=== PATIENT | female | born 1990 | race Caucasian/White ===

== ENCOUNTER 2017-02-13 17:48 | Emergency (ER) | payer OTHER, SELFPAY ==
[2017-02-13] MEDS ORDERED: PROCHLORPERAZINE 5 MG TAB PO STA (18:08)
[2017-02-13] MEDS ORDERED: IBUPROFEN 600 MG TAB PO STA (18:08)
--- NOTE | 2017-02-13 18:13 | ED ---
General Adult HPI - General Chief complaint: Head Injury Stated complaint: Head pain/injury Time Seen by Provider: 02/13/17 17:59 Source: patient, RN notes reviewed, old records reviewed Mode of arrival: ambulatory Limitations: no limitations - History of Present Illness Initial comments: This is a 26-year-old female here for evaluation of headache. Patient has worsening injury that she had and will getting into her car and dizzy nauseous at the time of breath and has since felt worse under stress and activity. Patient denies nausea or vomiting, denies neurological deficit. Has not taken any medications for pain. Patient was originally seen on an outpatient basis and told to come the ER if headache does not resolve or gets worse in the next week. Patient denies a getting worse and states that she still has persistent headache which is occasional. Patient is currently without headache - Related Data Home Medications Medication Instructions Recorded Confirmed Calcium Carbonate [Tums] 1,500 mg PO DAILY PRN 02/13/17 02/13/17 Allergies Allergy/AdvReac Type Severity Reaction Status Date / Time red dye Allergy Rash/Hives Verified 02/13/17 18:00 codeine AdvReac Hallucinati Verified 02/13/17 17:57 ons guaifenesin AdvReac Hallucinati Verified 02/13/17 17:57 ons Review of Systems ROS Statement: Those systems with pertinent positive or pertinent negative responses have been documented in the HPI. ROS Other: All systems not noted in ROS Statement are negative. Past Medical History Past Medical History: GERD/Reflux Additional Past Medical History / Comment(s): FEELS LIKE FOOD IS STUCK IN THROAT AT TIMES. REACTIVE HYPOGLYCEMIA History of Any Multi-Drug Resistant Organisms: None Reported Past Surgical History: No Surgical Hx Reported Past Anesthesia/Blood Transfusion Reactions: Motion Sickness Past Psychological History: No Psychological Hx Reported Smoking Status: Never smoker Past Alcohol Use History: None Reported Past Drug Use History: None Reported - Past Family History Mother Family Medical History: No Reported History General Exam Limitations: no limitations General appearance: alert, in no apparent distress Head exam: Present: atraumatic, normocephalic, normal inspection Eye exam: Present: normal appearance, PERRL, EOMI. Absent: scleral icterus, conjunctival injection, periorbital swelling ENT exam: Present: normal exam, mucous membranes moist Neck exam: Present: normal inspection. Absent: tenderness, meningismus, lymphadenopathy Respiratory exam: Present: normal lung sounds bilaterally. Absent: respiratory distress, wheezes, rales, rhonchi, stridor Cardiovascular Exam: Present: regular rate, normal rhythm, normal heart sounds. Absent: systolic murmur, diastolic murmur, rubs, gallop, clicks GI/Abdominal exam: Present: soft, normal bowel sounds. Absent: distended, tenderness, guarding, rebound, rigid Extremities exam: Present: normal inspection, full ROM, normal capillary refill. Absent: tenderness, pedal edema, joint swelling, calf tenderness Back exam: Present: normal inspection Neurological exam: Present: alert, oriented X3, CN II-XII intact Psychiatric exam: Present: normal affect, normal mood Skin exam: Present: warm, dry, intact, normal color. Absent: rash Course Vital Signs 02/13/17 17:55 Temperature 98.5 F Pulse Rate 70 Respiratory 20 Rate Blood Pressure 139/88 O2 Sat by Pulse 98 Oximetry - Reevaluation(s) Reevaluation #1: 02/13/17 18:12 Patient's headache at this point is resolved Medical Decision Making - Medical Decision Making 20 [facility] ER for evaluation of headache. Patient has had resolved CT negative will follow-up as again on outpatient for further evaluation of concussion - Radiology Data Radiology results: report reviewed (CT brain is negative for acute disease she says again denies ago), image reviewed Disposition Clinical Impression: Closed head injury, Concussion without loss of consciousness Disposition: HOME SELF-CARE Condition: Good Instructions: Concussion (ED) Referrals: Anoop Andrews MD [Primary Care Provider] - 1-2 days
[2017-02-13] MEDS: diphenhydrAMINE 25 MG CAP PO STA ×2 (18:31→18:32)
--- NOTE | 2017-02-13 18:46 | CT ---
EXAMINATION TYPE: CT brain wo con DATE OF EXAM: 02/13/2017 COMPARISON: 02/21/2010 HISTORY: Posterior head injury 1 week ago. Pressure to head and behind eyes. CT DLP: 1028.60 mGycm. Automated Exposure Control for Dose Reduction was Utilized. TECHNIQUE: CT scan of the head is performed without contrast. FINDINGS: The ventricles and sulci appear normal. There is no mass effect nor midline shift. There is no sign of intracranial hemorrhage. The calvarium is intact. IMPRESSION: Negative CT scan of the brain. No change..
[2017-02-13 19:32] VITALS: BP 120/72; PULSE 92; RESP 16; TEMP 97.9
== END 2017-02-13 19:30 | disposition home or self-care (01) ==
LOC: EC 17:48
DX: S06.0X0D Concussion without loss of consciousness, subsequent encounter (principal); Z88.5 Allergy status to narcotic agent; Z88.8 Allergy status to other drugs, medicaments and biological substances; Z91.048 Other nonmedicinal substance allergy status; W01.10XD Fall on same level from slipping, tripping and stumbling with subsequent striking against unspecified object, subsequent encounter
CPT/HCPCS: 70450; 99284

== ENCOUNTER 2017-02-14 17:18 | Emergency (ER) | payer OTHER ==
[2017-02-14 17:59] VITALS: RESP 18
[2017-02-14] MEDS ORDERED: KETOROLAC 30 MG/ML 1 ML VIAL IM STA (18:47)
[2017-02-14] MEDS ORDERED: ACETAMINOPHEN TAB 500 MG TAB PO STA (18:47)
[2017-02-14] MEDS ORDERED: ONDANSETRON 4 MG ODT STARTER PACK 2 TAB BTL PO STA (18:47)
[2017-02-14] MEDS ORDERED: RX INFO: IV CONTRAST WAS GIVEN 1 EACH MISC MISCELLANE PRN (19:10)
--- NOTE | 2017-02-14 19:15 | ED ---
Head Injury HPI - General Chief complaint: Head Injury Stated complaint: Hx CONCUSSION, PAIN GETTING WORSE Time Seen by Provider: 02/14/17 18:12 Source: patient, RN notes reviewed, old records reviewed Mode of arrival: ambulatory Limitations: no limitations - History of Present Illness Initial comments: This is a 26-year-old female presenting to the emergency department 1 week post head injury. Patient was in the emergency department yesterday she was having continuing headache. Patient reports that she hit her head while going into the car. She was evaluated by her primary care physician and was told that she has a concussion. Patient states that she was concerned yesterday because the pain was continuing. She received a CT without contrast of the brain was negative for any acute process. Patient reports that today her headache was continue to persist and she felt like things were slow to react. Patient denies any specific focal deficits. - Related Data Home Medications Medication Instructions Recorded Confirmed Calcium Carbonate [Tums] 1,500 mg PO DAILY PRN 02/13/17 02/13/17 Previous Rx's Medication Instructions Recorded Butalb/APAP/Caff 50-325-40Mg 1 tab PO Q4H PRN #20 tablet 02/14/17 [Fioricet 50-325-40] Ibuprofen [Motrin] 600 mg PO Q8HR PRN #20 tab 02/14/17 Ondansetron Odt [Zofran Odt] 4 mg PO Q8HR PRN #12 tab 02/14/17 Allergies/Adverse reactions: Allergies Allergy/AdvReac Type Severity Reaction Status Date / Time red dye Allergy Rash/Hives Verified 02/14/17 17:59 codeine AdvReac Hallucinati Verified 02/14/17 17:59 ons guaifenesin AdvReac Hallucinati Verified 02/14/17 17:59 ons Review of Systems ROS Statement: Those systems with pertinent positive or pertinent negative responses have been documented in the HPI. ROS Other: All systems not noted in ROS Statement are negative. Past Medical History Past Medical History: GERD/Reflux Additional Past Medical History / Comment(s): REACTIVE HYPOGLYCEMIA History of Any Multi-Drug Resistant Organisms: None Reported Past Surgical History: No Surgical Hx Reported Past Anesthesia/Blood Transfusion Reactions: Motion Sickness Past Psychological History: No Psychological Hx Reported Smoking Status: Never smoker Past Alcohol Use History: None Reported Past Drug Use History: None Reported - Past Family History Mother Family Medical History: No Reported History General Exam - General Exam Comments Initial Comments: 26-year-old female. No acute distress. Limitations: no limitations General appearance: alert, in no apparent distress Head exam: Present: atraumatic Eye exam: Present: normal appearance, PERRL, EOMI. Absent: scleral icterus, conjunctival injection, periorbital swelling ENT exam: Present: normal exam, mucous membranes moist Neck exam: Present: normal inspection. Absent: tenderness, meningismus, lymphadenopathy Respiratory exam: Present: normal lung sounds bilaterally. Absent: respiratory distress, wheezes, rales, rhonchi, stridor Cardiovascular Exam: Present: regular rate, normal rhythm, normal heart sounds. Absent: systolic murmur, diastolic murmur, rubs, gallop, clicks GI/Abdominal exam: Present: soft, normal bowel sounds. Absent: distended, tenderness, guarding, rebound, rigid Extremities exam: Present: normal inspection, full ROM, normal capillary refill. Absent: tenderness, pedal edema, joint swelling, calf tenderness Back exam: Present: normal inspection Neurological exam: Present: alert, oriented X3, CN II-XII intact Expanded Patient oriented to: Present: person, place, time Speech: Present: fluid speech Cranial nerves: EOM's Intact: Normal, Gag Reflex: Normal, Tongue Deviation: Normal, Facial Sensation: Normal Cerebellar function: Finger to Nose: Normal Upper motor neuron: Pronator Drift: Normal Sensory exam: Upper Extremity Light Touch: Normal, Lower Extremity Light Touch: Normal Motor strength exam: RUE: 5, LUE: 5, RLE: 5, LLE: 5 Eye Response: (4) open spontaneously Motor Response: (6) obeys commands Verbal Response: (5) oriented Tran Total: 15 Psychiatric exam: Present: normal affect, normal mood Course Vital Signs 02/14/17 02/14/17 17:55 20:07 Temperature 98.3 F 98.2 F Pulse Rate 77 85 Respiratory 18 18 Rate Blood Pressure 129/82 124/71 O2 Sat by Pulse 100 100 Oximetry Medical Decision Making - Medical Decision Making 26-year-old female 3 feet visit for headache. She has not taken anything for the headache today. Patient received a CT without contrast yesterday with same if any acute process. Patient has no focal deficits and neurologically intact. Discussed with Dr. Mar. Given the fact the patient's intermittent emergency department and she is here twice for headache within 24 hours patient is felt to have a CT with contrast. CT CRUZ and CBC and CMP obtained. Patient given Zofran, Toradol. CT angiogram of head is negative for any acute process. Patient was reevaluated and is feeling better after medication. Patient again is neurologically intact. No deficits. Discussed postconcussive syndrome and aortic less for a long time. Discussed that she needs to take Motrin Tylenol and I'll write the patient for nausea medication for her headaches. Patient agrees to treatment plan will comply. She also relates that she has an MRI scheduled in Friday. Return parameters were discussed. CBC and CMP are negative for any acute process. - Lab Data Result diagrams: 02/14/17 19:28 02/14/17 19:28 Lab Results 02/14/17 02/14/17 Range/Units 19:28 19:28 WBC 8.4 (3.8-10.6) k/uL RBC 4.99 (3.80-5.40) m/uL Hgb 14.1 (11.4-16.0) gm/dL Hct 41.5 (34.0-46.0) % MCV 83.2 (80.0-100.0) fL MCH 28.3 (25.0-35.0) pg MCHC 34.0 (31.0-37.0) g/dL RDW 14.5 (11.5-15.5) % Plt Count 212 (150-450) k/uL Neutrophils % 63 % Lymphocytes % 27 % Monocytes % 5 % Eosinophils % 3 % Basophils % 1 % Neutrophils # 5.3 (1.3-7.7) k/uL Lymphocytes # 2.2 (1.0-4.8) k/uL Monocytes # 0.4 (0-1.0) k/uL Eosinophils # 0.2 (0-0.7) k/uL Basophils # 0.1 (0-0.2) k/uL Sodium 139 (137-145) mmol/L Potassium 4.1 (3.5-5.1) mmol/L Chloride 103 (98-107) mmol/L Carbon Dioxide 24 (22-30) mmol/L Anion Gap 12 mmol/L BUN 18 H (7-17) mg/dL Creatinine 0.56 (0.52-1.04) mg/dL Est GFR (MDRD) Af Amer >60 (>60 ml/min/1.73 sqM) Est GFR (MDRD) Non-Af >60 (>60 ml/min/1.73 sqM) Glucose 77 (74-99) mg/dL Calcium 9.4 (8.4-10.2) mg/dL - Radiology Data Radiology results: report reviewed CT CRUZ head is negative for any acute process. Disposition Clinical Impression: Postconcussive syndrome Disposition: HOME SELF-CARE Condition: Good Instructions: Concussion (ED) Additional Instructions: Patient is to rest, increase her fluid intake. Take Motrin, and the nausea medication as prescribed. Follow-up with her primary care provider. Return to the emergency department if any alarming signs or symptoms occur. Prescriptions: Butalb/APAP/Caff 50-325-40Mg [Fioricet 50-325-40] 1 tab PO Q4H PRN #20 tablet PRN Reason: Pain Ibuprofen [Motrin] 600 mg PO Q8HR PRN #20 tab PRN Reason: Pain Ondansetron Odt [Zofran Odt] 4 mg PO Q8HR PRN #12 tab PRN Reason: Nausea Referrals: Anoop Andrews MD [Primary Care Provider] - 1-2 days Time of Disposition: 20:44
[2017-02-14] MEDS ORDERED: SODIUM CHLORIDE 0.9% 1,000 ML IV ONE (19:30)
[2017-02-14 19:40] LABS: HCT 41.5 % (34.0-46.0); HGB 14.1 gm/dL (11.4-16.0); MCV 83.2 fL (80.0-100.0); RBC 4.99 m/uL (3.80-5.40); WBC 8.4 k/uL (3.8-10.6); WBC (Perox) 8.12
[2017-02-14 19:41] LABS: Basophils # (A) 0.1 k/uL (0-0.2); Basophils % (A) 1 %; CH 28.9; CHCM 34.9; Eosinophils # (A) 0.2 k/uL (0-0.7); Eosinophils % (A) 3 %; HDW 2.63; Luc # (Auto) 0.16; Luc % (Auto) 2; Lymphocytes # (A) 2.2 k/uL (1.0-4.8); Lymphocytes % (A) 27 %; MCH 28.3 pg (25.0-35.0); Mean Platelet Volume 8.1; Monocytes # (A) 0.4 k/uL (0-1.0); Monocytes % (A) 5 %; Neutrophils # (A) 5.3 k/uL (1.3-7.7); Neutrophils % (A) 63 %; RDW 14.5 % (11.5-15.5)
[2017-02-14 19:51] LABS: Anion Gap 12 mmol/L; Blood Urea Nitrogen 18 mg/dL (7-17); Calcium 9.4 mg/dL (8.4-10.2); Carbon Dioxide 24 mmol/L (22-30); Chloride 103 mmol/L (98-107); Glucose 77 mg/dL (74-99); Non-African American GFR(MDRD) >60 (>60 ml/min/1.73 sqM); Potassium 4.1 mmol/L (3.5-5.1); Sodium 139 mmol/L (137-145)
[2017-02-14 20:08] VITALS: PULSE 85
--- NOTE | 2017-02-14 20:21 | CT ---
EXAMINATION TYPE: CT angio head DATE OF EXAM: 02/14/2017 8:10 PM COMPARISON: NONE HISTORY: Posterior head injury 8 days ago. Pressure to head and behind eyes. CT DLP: 1212.30 mGycm Automated exposure control for dose reduction was used. TECHNIQUE: Performed with IV Contrast, patient injected with 100 mL of Omnipaque 350. There are 3-D post processed images.. FINDINGS: There is arterial flow in the anterior middle and posterior cerebral arteries. There is arterial flow in the vertebrobasilar artery system. There is normal contrast opacification of the venous sinuses. There is no evidence of aneurysm or neovascularity. There is no mass effect. There is no sign of sten osis. IMPRESSION: NORMAL CT ANGIOGRAM OF THE BRAIN.
[2017-02-14 21:18] VITALS: BP 122/71; TEMP 97.9
== END 2017-02-14 21:17 | disposition home or self-care (01) ==
LOC: EC 17:18
DX: F07.81 Postconcussional syndrome (principal); Z88.5 Allergy status to narcotic agent; Z88.8 Allergy status to other drugs, medicaments and biological substances; Z91.02 Food additives allergy status
CPT/HCPCS: 36415; 80048; 85025; 70496; 99284; 96372; 96360; Q9967; J1885; S0119

== ENCOUNTER → 2017-09-03 | Outpatient (CLI) | payer BC ==
[2017-09-04 01:28] LABS: Gliadin AB IgA, Unit <0.2 U/mL
== END | disposition home or self-care (01) ==
LOC: LABWHC1 17:03
PROVIDERS: ATTEND Allergy & Immunology
DX: K21.9 Gastro-esophageal reflux disease without esophagitis (principal)
CPT/HCPCS: 36415; 82784; 83516

== ENCOUNTER → 2018-09-29 | Outpatient (CLI) | payer OTHER ==
--- NOTE | 2018-09-30 07:57 | USB ---
Reason for exam: clinical finding. History: Took hormonal contraceptives beginning at age 18. Physical Findings: Nurse did not find any significant physical abnormalities on exam. US Breast BILAT Right complete breast ultrasound includes all four quadrants, the retroareolar region and axilla. Finding demonstrates a 0.7 x 0.5 x 0.3cm oval, cystic lesion at 4 o'clock. Left complete breast ultrasound includes all four quadrants, the retroareolar region and axilla. Finding demonstrates a 0.3 x 0.4 x 0.3cm oval, cystic lesion at 11 o'clock. These results were verbally communicated with the patient and result sheet given to the patient on 09/29/18. ASSESSMENT: Benign, BI-RAD 2 RECOMMENDATION: Clinical management of both breasts. Manage patient on a clinical basis.
== END | disposition home or self-care (01) ==
LOC: RADUSWWP 15:09
PROVIDERS: ATTEND Obstetrics & Gynecology
DX: N64.4 Mastodynia (principal)

== ENCOUNTER → 2019-05-26 | Outpatient (CLI) | payer OTHER ==
--- NOTE | 2019-05-27 00:28 | MR ---
EXAMINATION TYPE: MR angio chest wo/w con DATE OF EXAM: 05/26/2019 COMPARISON: None HISTORY: Pain/tingling/burning in neck, down rt shoulder/arm CONTRAST: Standard multiplanar, multisequence MRI departmental protocol utilizing 10 mL intravenous Gadavist ga dolinium contrast. Heart size is normal. There is no pericardial effusion. There is no pleural effusion. There is normal appearance of the pulmonary arteries. I see no filling defect. There is normal branch ing pattern of the great vessels on the aortic arch. There is normal appearance of the superior and i nferior vena cava. There are no hilar masses. There is no mediastinal adenopathy. Thoracic aorta show s uniform enhancement without evidence of filling defect. There is no evidence of aortic aneurysm or dissection. There is no evidence of a pulmonary mass. Left and right ventricle have normal size. I se e no evidence of ventricular septal defect. Left and right subclavian arteries appear normal. I see no sign of hemodynamic stenosis. IMPRESSION: Negative MR angiogram of the chest.
== END | disposition home or self-care (01) ==
LOC: RADMRIMAIN 18:31
PROVIDERS: ATTEND Physical Medicine & Rehabilitation
DX: R07.9 Chest pain, unspecified (principal); M47.812 Spondylosis without myelopathy or radiculopathy, cervical region; R20.2 Paresthesia of skin; M35.7 Hypermobility syndrome
CPT/HCPCS: 71555; A9585

== ENCOUNTER 2019-11-16 16:06 | Observation (INO) | payer OTHER ==
[2019-11-16] MEDS ORDERED: ONDANSETRON 4 MG/2 ML VIAL IVP STA (16:25)
[2019-11-16] MEDS ORDERED: MORPHINE SULFATE 2 MG/ML SYRINGE IVP STA (16:25)
[2019-11-16] MEDS ORDERED: SODIUM CHLORIDE 0.9% 1,000 ML IV STA ×2 (16:25)
[2019-11-16] MEDS ORDERED: PANTOPRAZOLE 40 MG/10 ML VIAL IVP STA (16:25)
[2019-11-16] MEDS ORDERED: KETOROLAC 30 MG/ML 1 ML VIAL IVP STA (16:25)
--- NOTE | 2019-11-16 16:33 | ED ---
General Adult HPI - General Chief complaint: Nausea/Vomiting/Diarrhea Stated complaint: Abd Pain Time Seen by Provider: 11/16/19 16:13 Source: patient, RN notes reviewed, old records reviewed Mode of arrival: ambulatory Limitations: no limitations - History of Present Illness Initial comments: Patient is a 28-year-old female, presents emergency department today for evaluation for periumbilical with radiation towards the right side of her abdomen and abdominal pain becoming worse since 6 AM. Patient reports that yesterday she had a diet consisting of cheese seeds in fiber and oatmeal. She states that she wanted she had too much fiber causing her symptoms. She states that since 6 AM she's had worsening pain nausea vomiting and frequent bowel mo vements. She denies any bloody stools or bloody emesis. She's had a past medical history of GERD, leaky gut syndrome. Patient reports that she does take daily an acid medication. Patient states that she has had no previous surgical history. Last menstrual period was on November 02. She denies any abnormal vaginal bleeding or discharge. She denies dysuria. She has been feeling quite nauseated and lightheaded. - Related Data Home Medications Medication Instructions Recorded Confirmed Calcium Carbonate [Tums] 1,500 mg PO DAILY PRN 02/13/17 02/13/17 Previous Rx's Medication Instructions Recorded Butalb/APAP/Caff 50-325-40Mg 1 tab PO Q4H PRN #20 tablet 02/14/17 [Fioricet 50-325-40] Ibuprofen [Motrin] 600 mg PO Q8HR PRN #20 tab 02/14/17 Ondansetron Odt [Zofran Odt] 4 mg PO Q8HR PRN #12 tab 02/14/17 Allergies Allergy/AdvReac Type Severity Reaction Status Date / Time red dye Allergy Rash/Hives Verified 11/16/19 16:11 codeine AdvReac Hallucinati Verified 11/16/19 16:11 ons guaifenesin AdvReac Hallucinati Verified 11/16/19 16:11 ons Review of Systems ROS Statement: Those systems with pertinent positive or pertinent negative responses have been documented in the HPI. ROS Other: All systems not noted in ROS Statement are negative. Past Medical History Past Medical History: GERD/Reflux Additional Past Medical History / Comment(s): hiatal hernia. REACTIVE HYPOGLYCEMIA. "leaky gut" History of Any Multi-Drug Resistant Organisms: None Reported Past Surgical History: No Surgical Hx Reported Past Anesthesia/Blood Transfusion Reactions: Motion Sickness Past Psychological History: Anxiety, Depression Smoking Status: Never smoker Past Alcohol Use History: None Reported Past Drug Use History: None Reported - Past Family History Mother Family Medical History: No Reported History General Exam - General Exam Comments Initial Comments: 28-year-old female. Patient is generally weak and ill. Limitations: no limitations General appearance: alert, in no apparent distress Head exam: Present: atraumatic, normocephalic, normal inspection Eye exam: Present: normal appearance, PERRL, EOMI. Absent: scleral icterus, conjunctival injection, periorbital swelling ENT exam: Present: normal exam Neck exam: Present: normal inspection. Absent: tenderness, meningismus, lymphadenopathy Respiratory exam: Present: normal lung sounds bilaterally. Absent: respiratory distress, wheezes, rales, rhonchi, stridor Cardiovascular Exam: Present: regular rate, normal rhythm, normal heart sounds. Absent: systolic murmur, diastolic murmur, rubs, gallop, clicks GI/Abdominal exam: Present: tenderness (Periumbilical tenderness with radiation towards right lower quadrant.), normal bowel sounds. Absent: soft, distended, guarding, rebound, rigid Extremities exam: Present: normal inspection, full ROM, normal capillary refill. Absent: tenderness, pedal edema, joint swelling, calf tenderness Back exam: Present: normal inspection Neurological exam: Present: alert, oriented X3, CN II-XII intact Psychiatric exam: Present: normal affect, normal mood Skin exam: Present: warm, dry, intact, normal color. Absent: rash Course Vital Signs 11/16/19 11/16/19 11/16/19 16:07 16:50 16:51 Temperature 97.8 F Pulse Rate 113 H 63 Respiratory 20 16 Rate Blood Pressure 114/77 120/78 O2 Sat by Pulse 99 Oximetry Medical Decision Making - Medical Decision Making Patient is a 28-year-old female, who presents the emergency department today with complaints of significant right lower quadrant and periumbilical abdominal pain worsening since 6 AM and multiple substance of vomiting and nausea. She states that she had a high fiber diet yesterday and believes that she may trigger the symptoms for her. Patient had IV fluids labwork obtained given pain medication. On reevaluation she is still complaining of pain. Patient labwork shows leukocytosis of 12,000 with a neutrophil shift of 12,000 as well. Hemoglobin is stable. She denies any chance of or vaginal discharge or concern for sexual transmitted infection. At this time patient's computed tomography scan was completed. His evidence of free fluid within the pelvis concerning for possible appendicitis versus related to ovarian cyst. I discussed case with Dr. Murguia whom discussed the case with Dr. Quintanilla whom this in the emergency department to evaluate Patient. Recommended starting the Patient on IV antibiotics. Started on Zosyn. Cultures were completed. - Lab Data Result diagrams: 11/16/19 16:34 11/16/19 16:34 Lab Results 11/16/19 11/16/19 11/16/19 Range/Units 16:34 16:34 16:34 WBC 12.7 H (3.8-10.6) k/uL RBC 4.80 (3.80-5.40) m/uL Hgb 13.3 (11.4-16.0) gm/dL Hct 40.4 (34.0-46.0) % MCV 84.3 (80.0-100.0) fL MCH 27.8 (25.0-35.0) pg MCHC 33.0 (31.0-37.0) g/dL RDW 13.3 (11.5-15.5) % Plt Count 192 (150-450) k/uL Neutrophils % 95 % Lymphocytes % 3 % Monocytes % 2 % Eosinophils % 0 % Basophils % 0 % Neutrophils # 12.0 H (1.3-7.7) k/uL Lymphocytes # 0.4 L (1.0-4.8) k/uL Monocytes # 0.2 (0-1.0) k/uL Eosinophils # 0.0 (0-0.7) k/uL Basophils # 0.0 (0-0.2) k/uL PT 10.8 (9.0-12.0) sec INR 1.1 (<1.2) APTT 20.7 L (22.0-30.0) sec Sodium 136 L (137-145) mmol/L Potassium 3.9 (3.5-5.1) mmol/L Chloride 102 (98-107) mmol/L Carbon Dioxide 17 L (22-30) mmol/L Anion Gap 17 mmol/L BUN 8 (7-17) mg/dL Creatinine 0.45 L (0.52-1.04) mg/dL Est GFR (CKD-EPI)AfAm >90 (>60 ml/min/1.73 sqM) Est GFR (CKD-EPI)NonAf >90 (>60 ml/min/1.73 sqM) Glucose 116 H (74-99) mg/dL Plasma Lactic Acid Abdon (0.7-2.0) mmol/L Calcium 9.6 (8.4-10.2) mg/dL Total Bilirubin 0.5 (0.2-1.3) mg/dL AST 25 (14-36) U/L ALT 9 (4-34) U/L Alkaline Phosphatase 61 (38-126) U/L Total Protein 7.8 (6.3-8.2) g/dL Albumin 4.8 (3.5-5.0) g/dL Amylase 50 (30-110) U/L Lipase 55 (23-300) U/L HCG, Qual Not Detected 11/16/19 Range/Units 16:34 WBC (3.8-10.6) k/uL RBC (3.80-5.40) m/uL Hgb (11.4-16.0) gm/dL Hct (34.0-46.0) % MCV (80.0-100.0) fL MCH (25.0-35.0) pg MCHC (31.0-37.0) g/dL RDW (11.5-15.5) % Plt Count (150-450) k/uL Neutrophils % % Lymphocytes % % Monocytes % % Eosinophils % % Basophils % % Neutrophils # (1.3-7.7) k/uL Lymphocytes # (1.0-4.8) k/uL Monocytes # (0-1.0) k/uL Eosinophils # (0-0.7) k/uL Basophils # (0-0.2) k/uL PT (9.0-12.0) sec INR (<1.2) APTT (22.0-30.0) sec Sodium (137-145) mmol/L Potassium (3.5-5.1) mmol/L Chloride (98-107) mmol/L Carbon Dioxide (22-30) mmol/L Anion Gap mmol/L BUN (7-17) mg/dL Creatinine (0.52-1.04) mg/dL Est GFR (CKD-EPI)AfAm (>60 ml/min/1.73 sqM) Est GFR (CKD-EPI)NonAf (>60 ml/min/1.73 sqM) Glucose (74-99) mg/dL Plasma Lactic Acid Abdon 1.6 (0.7-2.0) mmol/L Calcium (8.4-10.2) mg/dL Total Bilirubin (0.2-1.3) mg/dL AST (14-36) U/L ALT (4-34) U/L Alkaline Phosphatase (38-126) U/L Total Protein (6.3-8.2) g/dL Albumin (3.5-5.0) g/dL Amylase (30-110) U/L Lipase (23-300) U/L HCG, Qual 11/16/19 17:03 EKG performed at 1639 sinus rhythm with sinus arrhythmia otherwise normal EKG. Ventricular rate of 160 ms. QS duration is 94 ms. QT QTc is 426/420 ms - Radiology Data Radiology results: report reviewed The appendix is definitely identified however there is lower quadrant and pelvic free fluid and possible appendix wall thickening directly adjacent to a crenulated-appearing right ovarian follicles and cysts, possibly hemorrhagic cyst. Therefore it is unknown whether the free fluid in the pelvis is related to an ruptured cyst or acute appendicitis. Surgical consultation is recommended. The case is clinically indeterminant and repeat computed tomography scan with oral contrast would be advised prior to surgical intervention to attempt to better delineate the appendix. Disposition Clinical Impression: Free fluid in pelvis, Right sided abdominal pain Disposition: ADMITTED IP TO THIS HOSP Condition: Stable Is patient prescribed a controlled substance at d/c from ED?: No Referrals: Anoop Andrews MD [Primary Care Provider] - 1-2 days Time of Disposition: 18:10
[2019-11-16 16:52] LABS: ALT 9 U/L (4-34); AST 25 U/L (14-36); African American GFR (CKD) >90 (>60 ml/min/1.73 sqM); Albumin 4.8 g/dL (3.5-5.0); Alkaline Phosphatase 61 U/L (38-126); Amylase 50 U/L (30-110); Anion Gap 17 mmol/L; Blood Urea Nitrogen 8 mg/dL (7-17); Calcium 9.6 mg/dL (8.4-10.2); Carbon Dioxide 17 mmol/L (22-30); Chloride 102 mmol/L (98-107); Glucose 116 mg/dL (74-99); HCG,Qualitative Serum Not Detected; Non-African American GFR(CKD) >90 (>60 ml/min/1.73 sqM); Potassium 3.9 mmol/L (3.5-5.1); Sodium 136 mmol/L (137-145); Total Bilirubin 0.5 mg/dL (0.2-1.3); Total Protein 7.8 g/dL (6.3-8.2)
[2019-11-16 16:54] LABS: Basophils % (A) 0 %; Eosinophils % (A) 0 %; HCT 40.4 % (34.0-46.0); HGB 13.3 gm/dL (11.4-16.0); Lymphocytes # (A) 0.4 k/uL (1.0-4.8); Lymphocytes % (A) 3 %; MCH 27.8 pg (25.0-35.0); MCV 84.3 fL (80.0-100.0); Mean Platelet Volume 8.4; Monocytes # (A) 0.2 k/uL (0-1.0); Monocytes % (A) 2 %; Neutrophils % (A) 95 %; Platelet Count 192 k/uL (150-450); RDW 13.3 % (11.5-15.5); WBC 12.7 k/uL (3.8-10.6)
[2019-11-16 17:06] LABS: INR 1.1 (<1.2); Prothrombin Time 10.8 sec (9.0-12.0)
[2019-11-16 17:15] LABS: Partial Thromboplastin Time 20.7 sec (22.0-30.0)
[2019-11-16] MEDS ORDERED: SODIUM CHLORIDE 0.9% 1,000 ML IV ONE (17:38)
[2019-11-16] MEDS ORDERED: MORPHINE SULFATE 4 MG/ML SYRINGE IVP STA (17:38)
--- NOTE | 2019-11-16 17:40 | CT ---
EXAMINATION TYPE: CT abdomen pelvis w con DATE OF EXAM: 11/16/2019 HISTORY: Abdominal pain and vomiting CT DLP: 509.4mGycm Automated Exposure Control for Dose Reduction was Utilized. CONTRAST: CT scan of the abdomen and pelvis is performed with IV Contrast, patient injected with 100 mL of Isov ue 300. COMPARISON: 05/31/2010 FINDINGS: LUNG BASES: No significant abnormality is appreciated. LIVER/GB: There is a punctate to small to accurately characterize 2 mm hypoattenuated hepatic lesion in segment 8, not clearly visualized on the prior. No radiopaque calculi in the gallbladder. PANCREAS: No significant abnormality is seen. SPLEEN: No splenomegaly. ADRENALS: No nodularity or thickening. KIDNEYS: Kidneys enhance symmetrically without hydronephrosis. BOWEL: The appendix is difficult to define with certainty, however there is a punctate focus of air i n the right lower quadrant directly adjacent to the right adnexa that could represent an inflamed jayna endix. A scant amount of right lower quadrant fluid is seen however free fluid is also seen in the po sterior cul-de-sac in addition to right ovarian crenulated lesions, possible hemorrhagic cysts. Addit ionally the colon diffusely demonstrates a paucity of haustration and subtle hyperemia. No dilated la rge or small bowel. UTERUS/ADNEXA: Left ovarian cystic lesions and right ovarian crenulated appearing follicles/cysts, po ssibly hemorrhagic cysts. LYMPH NODES: No greater than 1cm abdominal or pelvic lymph nodes are appreciated. OSSEOUS STRUCTURES: No significant abnormality is seen. IMPRESSION: The appendix is definitively identified however there is right lower quadrant and pelvic free fluid and a possible appendix with wall thickening directly adjacent to crenulated appearing rig ht ovarian follicles/cysts (possibly hemorrhagic cyst). Therefore it is unknown whether the free flui d in the pelvis is related to recently ruptured cyst or acute appendicitis. Surgical consultation is recommended. If the case is clinically indeterminate then repeat CT with oral contrast would be advis ed prior to surgical intervention to attempt to better delineate the appendix.
[2019-11-16] MEDS ORDERED: METOCLOPRAMIDE 5 MG/ML 2 ML VIAL IVP STA (17:52)
[2019-11-16] MEDS ORDERED: diphenhydrAMINE 50 MG/ML 1 ML VIAL IVP STA (17:52)
[2019-11-16] MEDS ORDERED: AMPICILLIN-SULBACTAM 3 GM in SODIUM CHLORIDE 0.9% 100 ML IVPB STA (18:05)
[2019-11-16] MEDS ORDERED: PIPERACILLIN-TAZOBACTAM 3.375 GM in SODIUM CHLORIDE 0.9% 100 ML IVPB STA (18:18)
[2019-11-16] MEDS ORDERED: NALOXONE 0.4 MG/ML 1 ML VIAL IV PRN (18:26)
[2019-11-16] MEDS ORDERED: ACETAMINOPHEN TAB 325 MG TAB PO PRN (18:26)
[2019-11-16 20:08] LABS: Appearance,Urine Clear (Clear); Bilirubin,Urine Negative (Negative); Blood,Urine Negative (Negative); Color,Urine Light Yellow; Glucose,Urine (UA) Negative (Negative); Ketones,Urine 4+ (Negative); Leukocyte Esterase,Urine Negative (Negative); Nitrite,Urine Negative (Negative); Protein,Urine Negative (Negative); Urobilinogen,Urine <2.0 mg/dL (<2.0)
[2019-11-16 20:10] LABS: Specific Gravity,Urine >1.050 (1.001-1.035)
[2019-11-16 20:37] LABS: Glucose,Whole Blood 86 mg/dL (75-99)
[2019-11-17] MEDS: PIPERACILLIN-TAZOBACTAM 3.375 GM in SODIUM CHLORIDE 0.9% 100 ML IVPB SCH ×3 (01:47→18:57)
[2019-11-17] MEDS: KETOROLAC 30 MG/ML 1 ML VIAL IVP PRN ×3 (01:48→21:27)
[2019-11-17] MEDS: MORPHINE SULFATE 4 MG/ML SYRINGE IV PRN ×2 (02:12→11:47)
[2019-11-17 06:17] LABS: Glucose,Whole Blood 76 mg/dL (75-99)
--- NOTE | 2019-11-17 08:05 | P.GSHP ---
History of Present Illness H&P Date: 11/16/19 Chief Complaint: Right-sided abdominal pain This a 19-year-old female who presented to the emergency room with complaints of abdominal pain. Patient states he had some nausea today. She states she's had right-sided abdominal pain. Patient she shawn with a pen where her pain was located. It is mainly located on the right abdominal wall in the upper supraumbilical area. Patient currently is hungry. She is requesting some drink. Her CAT scan shows a well visualized appendix however there is some fluid next to the appendix. There is also a right ovarian follicular cyst. Radiology is on clear this is a hemorrhagic cyst. But there is some free fluid in the pelvis. Past Medical History Past Medical History: GERD/Reflux Additional Past Medical History / Comment(s): hiatal hernia. REACTIVE HYPOGLYC EMIA. "leaky gut". Ovarian cyst in past History of Any Multi-Drug Resistant Organisms: None Reported Past Surgical History: No Surgical Hx Reported Past Anesthesia/Blood Transfusion Reactions: Motion Sickness Additional Past Anesthesia/Blood Transfusion Reaction / Comment(s): Car sick Past Psychological History: Anxiety, Depression Smoking Status: Never smoker Past Alcohol Use History: None Reported Past Drug Use History: None Reported - Past Family History Mother Family Medical History: No Reported History Additional Family Medical History / Comment(s): heart murmur Medications and Allergies Home Medications Medication Instructions Recorded Confirmed Type A.D.P Supplement 1 tab PO DAILY 11/16/19 11/16/19 History Candibactin Br Supplement 2 tab PO BID 11/16/19 11/16/19 History Dexlansoprazole [Dexilant] 60 mg PO DAILY 11/16/19 11/16/19 History Dicyclomine [Bentyl] 10 mg PO TID PRN 11/16/19 11/16/19 History Simethicone [Gas-X] 250 mg PO TID PRN 11/16/19 11/16/19 History Sucralfate [Carafate] 1 gm PO BID 11/16/19 11/16/19 History Allergies Allergy/AdvReac Type Severity Reaction Status Date / Time red dye Allergy Rash/Hives Verified 11/16/19 16:11 codeine AdvReac Hallucinati Verified 11/16/19 16:11 ons guaifenesin AdvReac Hallucinati Verified 11/16/19 16:11 ons Surgical - Exam Vital Signs Temp Pulse Resp BP Pulse Ox 97.8 F 113 H 20 114/77 99 11/16/19 16:07 11/16/19 16:07 11/16/19 16:07 11/16/19 16:07 11/16/19 16:07 - General well developed, no distress - Eyes PERRL - ENT normal pinna - Neck no masses - Respiratory normal expansion - Cardiovascular Rhythm: regular - Abdomen Mild right periumbilical pain. There is no significant pain in the right lower quadrant. There is no rebound or guarding Abdomen: soft Results - Labs 11/16/19 16:34 11/16/19 16:34 Abnormal Lab Results - Last 24 Hours (Table) 11/16/19 11/16/19 11/16/19 Range/Units 16:34 16:34 16:34 WBC 12.7 H (3.8-10.6) k/uL Neutrophils # 12.0 H (1.3-7.7) k/uL Lymphocytes # 0.4 L (1.0-4.8) k/uL APTT 20.7 L (22.0-30.0) sec Sodium 136 L (137-145) mmol/L Carbon Dioxide 17 L (22-30) mmol/L Creatinine 0.45 L (0.52-1.04) mg/dL Glucose 116 H (74-99) mg/dL Ur Specific [place] (1.001-1.035) Urine Ketones (Negative) 11/16/19 Range/Units 20:02 WBC (3.8-10.6) k/uL Neutrophils # (1.3-7.7) k/uL Lymphocytes # (1.0-4.8) k/uL APTT (22.0-30.0) sec Sodium (137-145) mmol/L Carbon Dioxide (22-30) mmol/L Creatinine (0.52-1.04) mg/dL Glucose (74-99) mg/dL Ur Specific [place] >1.050 H (1.001-1.035) Urine Ketones 4+ H (Negative) Diabetes panel 11/16/19 Range/Units 16:34 Sodium 136 L (137-145) mmol/L Potassium 3.9 (3.5-5.1) mmol/L Chloride 102 (98-107) mmol/L Carbon Dioxide 17 L (22-30) mmol/L BUN 8 (7-17) mg/dL Creatinine 0.45 L (0.52-1.04) mg/dL Glucose 116 H (74-99) mg/dL Calcium 9.6 (8.4-10.2) mg/dL AST 25 (14-36) U/L ALT 9 (4-34) U/L Alkaline Phosphatase 61 (38-126) U/L Total Protein 7.8 (6.3-8.2) g/dL Albumin 4.8 (3.5-5.0) g/dL Calcium panel 11/16/19 Range/Units 16:34 Calcium 9.6 (8.4-10.2) mg/dL Albumin 4.8 (3.5-5.0) g/dL Pituitary panel 11/16/19 Range/Units 16:34 Sodium 136 L (137-145) mmol/L Potassium 3.9 (3.5-5.1) mmol/L Chloride 102 (98-107) mmol/L Carbon Dioxide 17 L (22-30) mmol/L BUN 8 (7-17) mg/dL Creatinine 0.45 L (0.52-1.04) mg/dL Glucose 116 H (74-99) mg/dL Calcium 9.6 (8.4-10.2) mg/dL Adrenal panel 11/16/19 Range/Units 16:34 Sodium 136 L (137-145) mmol/L Potassium 3.9 (3.5-5.1) mmol/L Chloride 102 (98-107) mmol/L Carbon Dioxide 17 L (22-30) mmol/L BUN 8 (7-17) mg/dL Creatinine 0.45 L (0.52-1.04) mg/dL Glucose 116 H (74-99) mg/dL Calcium 9.6 (8.4-10.2) mg/dL Total Bilirubin 0.5 (0.2-1.3) mg/dL AST 25 (14-36) U/L ALT 9 (4-34) U/L Alkaline Phosphatase 61 (38-126) U/L Total Protein 7.8 (6.3-8.2) g/dL Albumin 4.8 (3.5-5.0) g/dL - Imaging CT scan - abdomen: report reviewed (Appendix is visualized. There is pelvic fluid. Questionable right ovarian cyst) Assessment and Plan Assessment: Right-sided abdominal pain. Patient will be observed. She'll be given a clear liquid diet. We will repeat labs in a.m.
[2019-11-17 08:53] LABS: Basophils % (A) 0 %; Eosinophils # (A) 0.1 k/uL (0-0.7); Eosinophils % (A) 1 %; HCT 34.9 % (34.0-46.0); HGB 11.2 gm/dL (11.4-16.0); Lymphocytes # (A) 1.3 k/uL (1.0-4.8); Lymphocytes % (A) 14 %; MCH 27.1 pg (25.0-35.0); MCHC 31.9 g/dL (31.0-37.0); MCV 84.9 fL (80.0-100.0); Mean Platelet Volume 8.2; Monocytes # (A) 0.5 k/uL (0-1.0); Monocytes % (A) 6 %; Neutrophils # (A) 7.3 k/uL (1.3-7.7); Neutrophils % (A) 78 %; Platelet Count 142 k/uL (150-450); RBC 4.11 m/uL (3.80-5.40); RDW 13.6 % (11.5-15.5); WBC 9.4 k/uL (3.8-10.6)
--- NOTE | 2019-11-17 09:59 | P.PN ---
Progress Note - Text Progress Note Date: 11/17/19 The patient feels better than last night. She states her pain is much improved. She does not have any significant right lower quadrant pain she did states her pain is mainly right periumbilical. On exam her vital signs are stable. Her abdomen soft. There is no rebound or guarding. There is no tenderness at McBurney's point. Patient most likely had a ruptured ovarian cyst. Patient will have her diet advanced. We will anticipate her discharged tonight or tomorrow morning. The patient did mention that she has a chronic history of right-sided abdominal pain.
[2019-11-17 10:24] VITALS: BMI 21.2
[2019-11-17] MEDS: ONDANSETRON 4 MG/2 ML VIAL IVP PRN (10:27)
[2019-11-17] MEDS ORDERED: MAG HYDROX/AL HYDROX/SIMETH 30 ML CUP PO PRN (11:12)
[2019-11-17] MEDS: FAMOTIDINE 20 MG TAB PO SCH ×2 (11:44→20:05)
--- NOTE | 2019-11-17 17:01 | P.OBCN ---
History of Present Illness Consult date: 11/17/19 Requesting physician: Macho Samuel Reason for consult: pelvic pain Chief complaint: Right lower quadrant pain and vaginitis History of present illness: Patient is a 28-year-old female who lates that yesterday she woke up and was having significant periumbilical and right-sided pain. The pain was severe and caused her to double over. She had been throughout approximately 8-10 times and following having multiple bowel movements as well she was brought into the emergency room. CAT scan of the pelvis and abdomen was done showing possible appendicitis versus ovarian cyst. I did review the CAT scan with radiologist and there is a small amount of free fluid which could represent a ruptured ovarian cyst that there is clear a clear defined 2.3 cm likely hemorrhagic cyst on the right side. There is no evidence for torsion and this time on not convinced an ultrasound of the pelvis will help further the diagnosis. It is noted that she does have a small leukocytosis with heme with a white blood cell count of 12.7. In describing her pain. It is relatively vague but predominantly periumbilical. There is some pain with deep palpation in the right lower quadrant but no rebound or rigidity. There is no involuntary guarding. No other peritoneal signs. She is on Zosyn. She denies fever/chills/nausea or vomiting at this time and relates that at no point did she believe she's had a fever. On pelvic exam, she tolerated the exam very well. Cultures for vaginal C&S and GC and chlamydia were obtained. She did not have any significant pain there is no cervical motion tenderness nor is there any masses. Based on the symptoms and description, I concerned would not rule out a cyst that ruptured causing acute onset of pain that has now started to dissipate due to reabsorption of the fluid. There is some white blood cell response with the chemical peritonitis of a ruptured cyst so that might explain her interim leukocytosis. Based on her current symptoms and as good as she appears this time I would not recommend from a gynecologic standpoint during surgery. It would be of limited value and even if there was some fluid I couldn't absolutely prove that that was the cause of her pain. Should more changes occur or if she begins to have symptoms were consistent with an acute appendicitis certainly general surgical evaluation again could be performed. Assessment right lower quadrant/pelvic pain Plan continue current management and conservative care with expectation that she will continue to improve. She and I did discuss potential having Dr. De Leon, who is her normal emulsion coater, order a pelvic ultrasound in 6-8 weeks to verify resolution of the 2.3 cm cyst. Past Medical History Past Medical History: GERD/Reflux Additional Past Medical History / Comment(s): hiatal hernia. REACTIVE HYPOGLYCEMIA. "leaky gut". Ovarian cyst in past History of Any Multi-Drug Resistant Organisms: None Reported Past Surgical History: No Surgical Hx Reported Past Anesthesia/Blood Transfusion Reactions: Motion Sickness Additional Past Anesthesia/Blood Transfusion Reaction / Comm: Car sick Past Psychological History: Anxiety, Depression Smoking Status: Never smoker Past Alcohol Use History: None Reported Past Drug Use History: None Reported - Past Family History Mother Family Medical History: No Reported History Additional Family Medical History / Comment(s): heart murmur Medications and Allergies Home Medications Medication Instructions Recorded Confirmed Type A.D.P Supplement 1 tab PO DAILY 11/16/19 11/16/19 History Candibactin Br Supplement 2 tab PO BID 11/16/19 11/16/19 History Dexlansoprazole [Dexilant] 60 mg PO DAILY 11/16/19 11/16/19 History Dicyclomine [Bentyl] 10 mg PO TID PRN 11/16/19 11/16/19 History Simethicone [Gas-X] 250 mg PO TID PRN 11/16/19 11/16/19 History Sucralfate [Carafate] 1 gm PO BID 11/16/19 11/16/19 History Allergies Allergy/AdvReac Type Severity Reaction Status Date / Time red dye Allergy Rash/Hives Verified 11/16/19 16:11 codeine AdvReac Hallucinati Verified 11/16/19 16:11 ons guaifenesin AdvReac Hallucinati Verified 11/16/19 16:11 ons Exam Osteopathic Statement: *. No significant issues noted on an osteopathic structural exam other than those noted in the History and Physical/Consult. Vital Signs Temp Pulse Pulse Resp BP BP Pulse Ox 11/17/19 12:54 98.3 F 87 16 115/74 100 11/17/19 08:45 98.7 F 73 16 105/64 100 11/17/19 06:58 98.1 F 89 16 96/58 97 11/16/19 23:00 98.7 F 99 18 116/60 96 11/16/19 20:29 97.8 F 89 18 107/70 99 11/16/19 18:52 97.8 F 97 17 99/60 100 Intake and Output 11/17/19 11/17/19 11/17/19 06:59 14:59 22:59 Intake Total 840 Output Total 600 Balance 240 Intake: Oral 840 Output: Urine 600 Other: Voiding Method Toilet Toilet # Voids 2 Weight 51.1 kg Results Result Diagrams: 11/17/19 08:35 11/16/19 16:34 Abnormal Lab Results - Last 24 Hours (Table) 11/16/19 11/16/19 11/17/19 Range/Units 16:34 20:02 08:35 Hgb 11.2 L (11.4-16.0) gm/dL Plt Count 142 L (150-450) k/uL APTT 20.7 L (22.0-30.0) sec Ur Specific [place] >1.050 H (1.001-1.035) Urine Ketones 4+ H (Negative)
[2019-11-17 20:14] VITALS: RESP 18
[2019-11-18] MEDS: PIPERACILLIN-TAZOBACTAM 3.375 GM in SODIUM CHLORIDE 0.9% 100 ML IVPB SCH ×2 (03:20→11:15)
[2019-11-18] MEDS: KETOROLAC 30 MG/ML 1 ML VIAL IVP PRN ×2 (06:34→12:45)
[2019-11-18] MEDS: FAMOTIDINE 20 MG TAB PO SCH (08:19)
[2019-11-18 09:38] VITALS: BP 112/66; PULSE 75; TEMP 98
[2019-11-18 12:16] LABS: N. gonorrhoeae,PCR Negative (Neg,Equiv); Neisseria Source Genital
[2019-11-18 12:19] LABS: C. trachomatis,PCR Negative (Neg,Equiv); Chlamydia trachomatis Source Genital
[2019-11-18] MEDS: ONDANSETRON 4 MG/2 ML VIAL IVP PRN (12:46)
--- NOTE | 2019-11-18 12:47 | P.DS ---
Providers Date of admission: 11/16/19 17:54 Expected date of discharge: 11/18/19 Attending physician: Macho Samuel Consults: 11/17/19 15:17 Consult Physician Routine Consulting Provider: Bruna De Leon Consult Reason/Comments: vaginal burning, ruptured ovarian cyst Do you want consulting provider notified?: Yes Primary care physician: [facility] Course: 28-year-old female who presented to emergency room with a chief complaint of abdominal pain. Patient states the pain was on the right side. She had a CAT scan performed which showed a well-visualized appendix however there was some fluid The appendix. There was also evidence of a hemorrhagic ovarian cyst. Patient was started on a clear liquid diet and advance as tolerated. Dr. Samuel did not believe the patient's pain was secondary to appendicitis and believes it is likely related to her ovarian cyst. The patient was deemed stable for discharge home today per Dr. Samuel. She is to follow up outpatient next week with Dr. Samuel. Please see EMR for further hospital course details. Discharge diagnosis 1. Abdominal pain, suspect secondary to ovarian cyst Nurse practitioner note has been reviewed by physician. Signing provider agrees with the documented findings, assessment, and plan of care. Patient Condition at Discharge: Stable Plan - Discharge Summary New Discharge Prescriptions: New Ondansetron Odt [Zofran Odt] 4 mg PO Q8HR PRN #9 tab PRN Reason: Nausea No Action Simethicone [Gas-X] 250 mg PO TID PRN PRN Reason: GAS Dicyclomine [Bentyl] 10 mg PO TID PRN PRN Reason: Gi Upset Candibactin Br Supplement 2 tab PO BID Sucralfate [Carafate] 1 gm PO BID Dexlansoprazole [Dexilant] 60 mg PO DAILY A.D.P Supplement 1 tab PO DAILY Discharge Medication List A.D.P Supplement 1 tab PO DAILY 11/16/19 [History] Candibactin Br Supplement 2 tab PO BID 11/16/19 [History] Dexlansoprazole [Dexilant] 60 mg PO DAILY 11/16/19 [History] Dicyclomine [Bentyl] 10 mg PO TID PRN 11/16/19 [History] Simethicone [Gas-X] 250 mg PO TID PRN 11/16/19 [History] Sucralfate [Carafate] 1 gm PO BID 11/16/19 [History] Ondansetron Odt [Zofran Odt] 4 mg PO Q8HR PRN #9 tab 11/18/19 [Rx] Follow up Appointment(s)/Referral(s): Anoop Andrews MD [Primary Care Provider] - 1-2 days Macho Samuel MD [STAFF PHYSICIAN] - 1 Week (FOLLOW UP ON FRIDAY 1:15PM November) Patient Instructions/Handouts: Ovarian Cyst (DC) Activity/Diet/Wound Care/Special Instructions: FOLLOW UP ORDERED, SOONER IF WORSENING PROBLEMS OR CONCERNS THAT BROUGHT YOU IN. CALL IN ONE MONTH TO SCHEDULE U/S AT 6-8 WEEKS FROM NOW
== END 2019-11-18 13:50 | disposition home or self-care (01) ==
LOC: EC 16:06 → 6PED 17:54
PROVIDERS: ADMIT Surgery; ATTEND Surgery
DX: R10.31 Right lower quadrant pain (principal); R10.33 Periumbilical pain; R10.2 Pelvic and perineal pain; N83.01 Follicular cyst of right ovary; R11.2 Nausea with vomiting, unspecified; R19.7 Diarrhea, unspecified; D72.829 Elevated white blood cell count, unspecified; R42 Dizziness and giddiness; K21.9 Gastro-esophageal reflux disease without esophagitis; Z79.899 Other long term (current) drug therapy; Z88.5 Allergy status to narcotic agent; Z88.8 Allergy status to other drugs, medicaments and biological substances; Z91.02 Food additives allergy status; Z82.49 Family history of ischemic heart disease and other diseases of the circulatory system; Z20.828 Contact with and (suspected) exposure to other viral communicable diseases
CPT/HCPCS: 96361 ×2; 96366 ×2; 96376 ×3; 96365; 96375; 99285; 36415; 93005; 80053; 82150; 83605; 83690; 85025 ×2; 85610; 85730; 81003; 84703; 87040; 87491; 87591; 87070; 74177; G0378 ×3; U0003; J2543 ×3; J2270 ×3; J1200; J2765; J2405 ×3; J1885 ×3; C9113; Q9967

== ENCOUNTER → 2020-09-21 | Outpatient (CLI) | payer OTHER ==
--- NOTE | 2020-09-21 10:17 | US ---
EXAMINATION TYPE: US venous doppler duplex LE DATE OF EXAM: 09/21/2020 10:03 AM COMPARISON: NONE CLINICAL HISTORY: R20.2 Paresthesia of skin. stinging and tingling within bilateral thighs, no h/o dv t, no swelling SIDE PERFORMED: Bilateral TECHNIQUE: The lower extremity deep venous system is examined utilizing real time linear array sonog vasiliy with graded compression, doppler sonography and color-flow sonography. VESSELS IMAGED: Common Femoral Vein Deep Femoral Vein Greater Saphenous Vein * Femoral Vein Popliteal Vein Small Saphenous Vein * Proximal Calf Veins (* superficial vessels) Right Leg: Negative for DVT Left Leg: Negative for DVT IMPRESSION: No evidence for DVT at this time.
== END | disposition home or self-care (01) ==
LOC: RADUSWWP 09:38
PROVIDERS: ATTEND Family Medicine
DX: R20.2 Paresthesia of skin (principal)
CPT/HCPCS: 93970